=== PATIENT | male | born 1965 | race American Indian/Alaskan Native ===

== ENCOUNTER 2016-05-10 10:36 | Inpatient (IN) | payer MEDICAID ==
--- NOTE | 2016-05-10 12:26 | Emergency Department Report ---
Chief Complaint: Pain General Stated Complaint: RT ARM/KNEE PAIN Time Seen by Provider: 05/10/16 12:23 - HPI History of Present Illness: 51 y/o male complain of bilateral chest pain radiating to right knee and bilateral shoulder pain x 2 days .pt complain of shortness of breath with chronic cough .pt denies any prior medical treatment .denies any injury - ROS Review of Systems: per HPI - Exam Vital Signs: Vital Signs 05/10/16 12:00 Temperature 98.5 F Pulse Rate 98 H Respiratory 20 Rate Blood Pressure 147/110 O2 Sat by Pulse 98 Oximetry Physical Exam: GENERAL: The patient is well-developed and well-nourished. Patient is in NAD. HENT: Normocephalic. Atraumatic. Patient has moist mucous membranes. Throat: No erythema, swelling or exudates. EYES: Extraocular motions are intact, PERRL NECK: Supple. No meningitic signs are noted. There is no adenopathy noted. CHEST/LUNGS: Clear to auscultation bilaterally. No wheezing, rales or rhonchi noted. There is no respiratory distress noted. HEART/CARDIOVASCULAR: Regular rate and rhythm. Normal S1 S2. No murmurs, rubs , clicks, or gallops. ABDOMEN: Abdomen is soft, nontender.. Bowel sounds normoactive. There is no abdominal distention. Negative rebound tenderness. : Deferred. SKIN: There is no rash. There is no edema. There is no diaphoresis. NEURO: The patient is A&Ox3. The patient has no focal neurologic deficits. MUSCULOSKELETAL: There is no tenderness or deformity. There is no limitation range of motion. PSYCH: Pt has appropriate mood and affect. MSE screening note: Focused history and physical exam performed. Due to findings the following was ordered: ED Disposition for MSE Condition: Stable
--- NOTE | 2016-05-10 12:41 | XRay Report ---
ROUTINE CHEST, TWO VIEWS: HISTORY: Cough. No comparison. Previous CABG changes are suspected. The trachea, heart, mediastinal contour, lung baig and bony thorax are unremarkable. IMPRESSION: No acute cardiopulmonary process.
[2016-05-10 13:13] LABS: Basophils % (Auto) 0.9 % (0.0-1.8); Eosinophils % (Auto) 2.2 % (0.0-4.3); Hematocrit 46.3 % (35.5-45.6); Hemoglobin 14.7 gm/dl (11.8-15.2); Mean Corpuscular HGB Conc 32 % (32-34); Mean Corpuscular Volume 80 fl (84-94); Platelet Count 208 K/mm3 (140-440); Red Blood Count 5.76 M/mm3 (3.65-5.03); Red Cell Distribution Width 16.2 % (13.2-15.2); White Blood Count 5.7 K/mm3 (4.5-11.0)
[2016-05-10 13:15] LABS: Mean Corpuscular Hemoglobin 26 pg (28-32)
[2016-05-10 13:21] LABS: Creatine Kinase MB 2.2 ng/mL (0.0-4.0)
[2016-05-10 13:23] LABS: Anion Gap 18 mmol/L; Blood Urea Nitrogen 10 mg/dL (9-20); Calcium 9.3 mg/dL (8.4-10.2); Carbon Dioxide 23 mmol/L (22-30); Creatine Kinase 104 units/L (55-170); Glucose 95 mg/dL (75-100); Potassium 4.1 mmol/L (3.6-5.0); Sodium 134 mmol/L (137-145)
--- NOTE | 2016-05-10 23:27 | Admit Criteria Form ---
Admission Criteria Documentation: CHEST PAIN: OBSERVATION CARE USE THIS FORM ONLY WHEN INPATIENT ADMISSION CRITERIA ARE NOT MET. (Place X for any and all applicable criteria): Placement for observation care may be appropriate for a patient with chest pain and ANY ONE of the following (1)(2)(3)(4)(5): []I. Suspected cardiac ischemia with nondiagnostic initial evaluation (eg, ECG, cardiac biomarkers) requiring further immediate evaluation such as stress testing and repeat laboratory testing to clarify diagnosis []II. Other suspected diagnosis requiring observation and monitoring during diagnostic evaluation (eg, pulmonary embolus, aortic dissection, pneumothorax, pericarditis, GI bleeding) (6)(7)(8)(9) [X]III. Other observation care needs (Use General Criteria: Observation Care) The original [facility] content created by [facility] has been revised. The portions of the content which have been revised are identified through the use of italic text, and [facility] has neither reviewed nor approved the modified material. All other unmodified content is copyright [facility] [employer]. Please see references footnoted in the original [email or web address] edition 2015 Admission Criteria Met: Pending
--- NOTE | 2016-05-10 23:29 | Emergency Department Report ---
ED Chest Pain HPI - General Chief Complaint: Pain General Stated Complaint: RT ARM/KNEE PAIN Time Seen by Provider: 05/10/16 23:15 Source: patient Mode of arrival: Ambulatory Limitations: No Limitations - History of Present Illness Initial Comments: Patient is a 51-year-old male with history of hypertension, hyperlipidemia, coronary artery disease status post CABG presenting today because of chest pain and left shoulder pain. Patient states that the pain has been going on for 2 days and is associated with shortness of breath and nausea and vomiting. He also is complaining of right lower extremity pain where he had a prior surgery. Patient is an active smoker of tobacco. Nothing seems to make symptoms better or worse. Severity scale (0 -10): 8 - Related Data Home Medications Medication Instructions Recorded Confirmed Last Taken Unobtainable 05/11/16 05/11/16 Unknown Allergies Allergy/AdvReac Type Severity Reaction Status Date / Time No Known Allergies Allergy Unverified 05/10/16 12:11 MIAN score - Mian Score Age > 65: (0) No Aspirin use within the Past 7 Days: (1) Yes 3 or more CAD Risk Factors: (1) Yes 2 or more Angina events in past 24 hrs: (1) Yes Known CAD with more than 50% Stenosis: (0) No Elevated Cardiac Markers: (0) No ST Deviation Greater than 0.5mm: (0) No MIAN Score: 3 ED Review of Systems ROS: Stated complaint: RT ARM/KNEE PAIN Other details as noted in HPI Comment: All other systems reviewed and negative Constitutional: denies: chills, fever Respiratory: cough (cough for 1 month), SOB with exertion Cardiovascular: chest pain, dyspnea on exertion Gastrointestinal: nausea, vomiting. denies: abdominal pain Musculoskeletal: as per HPI Skin: denies: rash Neurological: denies: headache ED Past Medical Hx - Medications Home Medications: Home Medications Medication Instructions Recorded Confirmed Last Taken Type Unobtainable 05/11/16 05/11/16 Unknown History ED Physical Exam - General Limitations: No Limitations General appearance: alert, in no apparent distress - Head Head exam: Present: atraumatic - Eye Eye exam: Present: normal appearance - ENT ENT exam: Present: normal exam - Respiratory Respiratory exam: Present: normal lung sounds bilaterally. Absent: respiratory distress, wheezes - Cardiovascular Cardiovascular Exam: Present: regular rate, normal heart sounds, other (midline surgical scar in place.) - GI/Abdominal GI/Abdominal exam: Present: soft. Absent: distended, tenderness - Extremities Exam Extremities exam: Present: other (linear scar on the medial aspect of the right lower leg below knee, nontender) - Neurological Exam Neurological exam: Present: alert. Absent: motor sensory deficit - Skin Skin exam: Absent: rash ED Course Vital Signs 05/10/16 05/10/16 05/11/16 12:00 16:23 00:21 Temperature 98.5 F 98.1 F Pulse Rate 98 H 91 H Respiratory 20 20 20 Rate Blood Pressure 147/110 145/102 O2 Sat by Pulse 98 96 Oximetry ED Medical Decision Making - Lab Data Result diagrams: 05/10/16 12:47 05/10/16 12:47 - Medical Decision Making Patient has significant risk factors for ACS is also a story concerning for it. Labs and chest x-ray pre-ordered. Labs show a negative troponin and x-ray read as negative by radiology. EKG shows normal sinus rhythm at a rate of 87 with a narrow QRS, no ST elevation or depression, Has diffuse T-wave inversions in the precordial leads He should take 81 mg earlier of aspirin in the day. We'll give another 81 mg of aspirin here. We'll also repeat troponin. Will admit due patient's risk factors and concerning story for ACS Critical care attestation.: If time is entered above; I have spent that time in minutes in the direct care of this critically ill patient, excluding procedure time. ED Disposition Clinical Impression: Chest pain Qualifiers: Chest pain type: unspecified Qualified Code(s): R07.9 - Chest pain, unspecified Disposition: OP ADMITTED IP TO THIS HOSP Is pt being admited?: Yes Does the pt Need Aspirin: Yes Condition: Serious Instructions: Chest Pain (ED) Time of Disposition: 00:54 (Spoke to Dr. Mariscal about admission)
--- NOTE | 2016-05-10 23:30 | Admit Criteria Form ---
Admission Criteria Documentation: CARDIOLOGY GRG Clinical Indications for Admission to Inpatient Care ( Place 'X' for any and all applicable criteria): Hospital admission is needed for appropriate care of the patient because of ANY ONE of the following (1): [ ] I. Hemodynamic instability as indicated by ALL of the following (1)(2)(3) (4)(5) [ ]a) Vital signs or other findings not as expected for chronic patient condition or baseline [ ]b) Instability indicated by ANY ONE of the following: [ ]i) Hypotension [ ]ii) Symptomatic Tachycardia unresponsive to treatment ( e.g., analgesia, fluids, sedation as indicated) [ ]iii) Inadequate perfusion indicated by ANY ONE of the following: [ ] 1) Lactic acidosis (> 2 mmol/L) [ ] 2) New abnormal capillary refill (> 3 seconds) [ ] 3) Reduced urine output [ ] 4) New altered mental status [ ]iv) Orthostatic vital sign changes unresponsive to treatment (e.g., fluids) [ ]v) IV inotropic or vasopressor medication required to maintain adequate blood pressure or perfusion [ ] II. Severe heart failure as indicated by ANY ONE of the following(17)(18) [ ]a) Respiratory distress [ ]b) Hypotension [ ]c) Anasarca (refractory to outpatient therapy) [ ]d) Cardiac arrhythmias of immediate concern [ ]e) Myocardial ischemia [ ] III. Cardiac arrhythmias or findings of immediate concern indicated by ANY ONE of the following (19)(20): [ ] a) Heart rhythms that are inherently dangerous or unstable indicated by ANY ONE of the following (21)(22)(23): [ ] i) Resuscitated ventricular fibrillation or cardiac arrest [ ] ii) Ventricular escape rhythm [ ] iii) Sustained ventricular tachycardia (30 seconds or more of ventricular rhythm at greater than 100 beats per minute) [ ] iv) Nonsustained ventricular tachycardia and ANY ONE of the following: [ ] 1) Suspected cardiac ischemia as cause or consequence of ventricular tachycardia [ ] 2) In setting of acute myocarditis [ ] b) Unstable cardiac conduction defects indicated by ANY ONE of the following(23)(24)(25) [ ] i) Type II second-degree atrioventricular block [ ]ii) Third-degree atrioventricular block [ ]iii) New-onset left bundle branch block with suspected myocardial ischemia [ ]c) Any heart rhythm and ANY ONE of the following (21)(22)(26)(27) (28) [ ] i) Continuous long-term ECG monitoring needed (e.g., initiation of drug requiring monitoring for more than 24 hours) [ ] ii) Patient has automatic implanted cardioverter defibrillator that is repeatedly firing, malfunctioning, or in need of immediate adjustment of settings beyond the scope of ambulatory or observation care [ ]d) Heart rhythms of concern due to ANY ONE of the following: [ ] i) Hypotension [ ] ii) Respiratory distress [ ] iii) Association with other significant symptoms (e.g., bradycardia with syncope or ongoing dizziness, supraventricular tachycardia with chest pain (14)(15)(17) [ ] IV. Monitoring for cardiac contusion beyond the scope of observation care needed [A](30)(31)(32) [ ] V. Surgical or device complication (e.g., valve replacement complication , pacemaker dysfunction) (35)(41)(44)(45)(46) [ ] . Inpatient palliative care needed. [B](49) Also use Inpatient Palliative Care Criteria [ ] VII. Nonbacterial thrombotic (marantic) endocarditis (36)(43)(47)(48) [ X] VIII. Cardiology condition, symptom, or finding for which emergency and observation care has failed or are not considered appropriate. [ ] IX. Acute valvular disease requiring inpatient as indicated by ANY ONE of the following (41) [ ]a) Acute valvular regurgitation (42) [ ]b) Noninfectious valvulitis (43) [ ]c) Obstructive valve thrombosis [ ]d) Paravalvular leak [ ]e) Other significant valvular disorder remaining after emergency or observation level of care (as appropriate) [ ]X. Pericardial disease requiring inpatient treatment as indicated by ANY ONE of the following (33)(34)(35)(36)(37) [ ]a) Suspected tamponade (38)(39)(40) [ ]b) Hemopericardium [ ]c) Other significant pericardial disorder remaining after emergency or observation level of care (as appropriate) [ ] XI. Cardiac ischemia beyond scope of emergency and observation care. [ ] XII. Hypertension requiring inpatient treatment as indicated by ANY ONE of the following (6)(7)(8) [ ]a) SBP greater than 220 mm Hg or DBP greater than 120 mmHg despite treatment [ ]b) SBP greater than 140 mm Hg or DBP greater than 100 mm Hg with evidence of acute end organ damage as indicated by ANY ONE of the following [ ] i) Altered mental status [ ] ii) Acute renal failure as indicated by new onset of ANY ONE of the following (9)(10)(11)(12)(13) [ ]1) 3-fold rise in serum creatinine from baseline [ ]2) Serum creatinine greater than 4 mg/dL ( 354 micromoles/L) with acute rise greater than 0.5 mg/dL (44.2 micromoles/L) [ ]3) Reduction of more than 75% in estimated glomerular filtration rate from baseline [ ]4) Estimated glomerular filtration rate less than 35 mL/min/1.73m2 (0.59 mL/sec/1.73m2) in child up to 18 years of age [ ]5) Cessation of urine output indicated by ALL of the following [ ]A. Adequate volume status [ ]B. Inadequate urine output as indicated by ANY ONE of the following [ ]a. Urine output less than 0.3 mL/kg/hr for 24 hours [ ]b. Anuria (urine output less than 0.1 mL/kg/hr) for 12 hours [ ] iii) Aortic dissection [ ] iv) Myocardial Ischemia [ ] v) Left ventricular heart failure [ ]vi) Retinal Hemorrhage [ ]vii) Other significant finding [ ]c) Hypertension in child requiring inpatient treatment as indicated by ALL of the following(14)(15)(16) [ ] i) Outpatient treatment not effective, not available, or not appropriate [ ]ii) SBP or DBP greater than 95th percentile for age [ ]iii) Evidence of acute end organ damage as indicated by ANY ONE of the following [ ]1) Altered mental status [ ]2) Acute renal failure as indicated by new onset of ANY ONE of the following(9)(10)(11)(12)(13) [ ]A. 3-fold rise in serum creatinine from baseline [ ]B. Serum creatinine greater than 4 mg/dL (354 micromoles/L) with acute rise greater than 0.5 mg/dL (44.2 micromoles/L) [ ]C. Reduction of more than 75% in estimated glomerular filtration rate from baseline [ ]D. Estimated glomerular filtration rate less than 35 mL/min/1.73m2 (0.59 mL/sec/1.73m2) in child up to 18 years of age [ ]E. Cessation of urine output indicated by ALL of the following [ ]a. Adequate volume status [ ]b. Inadequate urine output as indicated by ANY ONE of the following [ ]i) Urine output less than 0.3 mL/kg/hr for 24 hours [ ]ii) Anuria ( urine output less than 0.1 mL/kg/hr) for 12 hours [ ]3) Severe headache [ ]4) Visual disturbance [ ]5) Retinal hemorrhage [ ]6) Other significant finding [ ]XIII. Complications of transplanted heart indicated by ANY ONE of the following(61): [ ]a) Acute graft rejection requiring inpatient management (eg, intravenous immunosuppression)(62)(63) [ ]b) Acute graft heart failure indicated by ANY ONE of the following(64): [ ]i) Hemodynamic instability [ ]ii) Cardiac arrhythmias of immediate concern [ ]iii) Pulmonary edema that is very severe (eg, mechanical ventilation needed, imminent or likely, need for 100% oxygen to keep oxygen saturation above 90%) [ ]iv) Pulmonary edema that is persistent as indicated by ALL of the following: [ ]1) New need for oxygen therapy to keep oxygen saturation above 90% (or increased FiO2 need from baseline) [ ]2) Has not improved sufficiently with emergency department or observation care IV diuretics or other heart failure treatments[E] [ ]v) Altered mental status that is severe or persistent [ ]vi) Increased creatinine (new on laboratory test) with reduction of more than 50% in estimated glomerular filtration rate from baseline [ ]vii) Progressively (ongoing) rising creatinine (known from past laboratory test) with reduction of more than 25% in estimated glomerular filtration rate from baseline [ ]viii) Acute renal failure [ ]ix) Acute peripheral ischemia (eg, examination shows pulseless, cool, mottled, or cyanotic extremity) [ ]x) Pulmonary artery catheter monitoring needed [ ]xi) Other sign or symptom of heart failure requiring inpatient treatment (ie, too severe or not responsive to outpatient and observation care treatment) [ ]c) Infection requiring inpatient management (eg, Hemodynamic instability, need for intravenous antimicrobial treatment)(66)(67)(68)(69)(70) [ ]d) Cardiac allograft vasculopathy requiring inpatient management ( eg evidence of cardiac ischemia)(71) [ ]e) Other complication of transplanted heart (eg, stroke, severe pulmonary hypertension, severe valvular dysfunction) requiring inpatient management(72) The original [facility] [employer] content created by [facility] has been revised. The portions of the content which have been revised are identified through the use of italic text or in bold, and [facility] has neither reviewed nor approved the modified material. All other unmodified content is copyright [facility] [employer]. Please see references footnoted in the original [facility] [employer] edition 2016 Admission Criteria Met: Pending
[2016-05-10] MEDS ORDERED: BABY ASPIRIN PO ONE (23:33)
[2016-05-11] MEDS ORDERED: PERCOCET 5/325 PO ONE (00:53)
--- NOTE | 2016-05-11 04:31 | History and Physical Report ---
History of Present Illness Date of examination: 05/11/16 Chief complaint: chest pain History of present illness: Patient is a 51-year-old male with history of hypertension, hyperlipidemia, coronary artery disease status post CABG presenting today because of chest pain and left shoulder pain. Patient stated that the pain has been going on for 2 days and is associated with shortness of breath, diaphoresis, nausea and vomiting. He also is complaining of right lower extremity pain where he had a prior surgery. Patient is an active smoker of tobacco. Nothing seems to make symptoms better or worse. patient complains chest bilateral, pressure-like, 8 out of 10 in intensity. Patient also complains of cough productive of whitish sputum for the last 1 week, but denied fever or chills. Also complains left arm numbness. REVIEW OF SYSTEMS: GENERAL: no weight change, no fatigue, no fever HEAD: no head ache EYES: no blurry vision, no acute visual loss EARS: no hearing loss, no discharge, no earache NOSE: no stuffiness, no sneezing, no discharge MOUTH, THROAT AND NECK: no bleeding gums, no sore throat, no swollen neck CARDIAC: no palpitations, no dyspnea on exertion, no orthopnea, no PND, no edema RESPIRATORY: no wheeze, no cough, no sputum, no hemoptysis, no asthma GI: no decreased appetite, no nausea, no vomiting, no dysphagia, no diarrhea, no constipation, no abdominal pain URINARY: no change in frequency, no urgency, no polyuria, no hematuria, no incontinence MUSCULOSKELETAL: no muscle weakness, no pain, no joint stiffness NEUROLOGIC: no loss of sensation/numbness, no tingling, no tremors, no weakness/ paralysis HEMATOLOGIC: no anemia, no easy bruising SKIN: no rashes ENDOCRINE: no heat/cold intolerance, no polyuria, no polydipsia, no thyroid problems, no diabetes PSYCHIATRIC: no anxiety, no depression, no suicidal ideations Past History Past Medical History: CAD, hypertension, hyperlipidemia Past Surgical History: Other (leg surgery) Social history: smoking (1 pack over 3 days), full code. denies: alcohol abuse , prescription drug abuse, IV drug use Family history: CAD (multiple family members) Medications and Allergies Allergies Allergy/AdvReac Type Severity Reaction Status Date / Time No Known Allergies Allergy Unverified 05/10/16 12:11 Home Medications Medication Instructions Recorded Confirmed Last Taken Type Unobtainable 05/11/16 05/11/16 Unknown History Active Meds: Active Medications Aspirin (Aspirin) 325 mg PO QDAY MICHELLE Heparin Sodium (Porcine) (Heparin) 5,000 unit SUB-Q Q8HR [facility] Exam - Physical Exam Narrative exam: Not in cardiopulmonary distress. The patient appeared well nourished and normally developed. Vital signs as documented. Head exam is unremarkable. No scleral icterus . Neck is without jugular venous distension, thyromegaly, or carotid bruits. Lungs are clear to auscultation. Cardiac exam reveals regular rate and Rhythm. First and second heart sounds normal. No murmurs, rubs or gallops. Abdominal exam reveals normal bowel sounds, no masses, no organomegaly and no aortic enlargement. Extremities are nonedematous and both femoral and pedal pulses are normal. [employer]: Alert and oriented 3. No focal weakness. - Constitutional Vitals: Temp Pulse Resp BP Pulse Ox 98.1 F 91 H 18 145/102 96 05/10/16 16:23 05/10/16 16:23 05/11/16 01:44 05/10/16 16:23 05/10/16 16:23 Results - Labs CBC & Chem 7: 05/10/16 12:47 05/10/16 12:47 Labs: Laboratory Last Values WBC 5.7 K/mm3 (4.5-11.0) 05/10/16 12:47 RBC 5.76 M/mm3 (3.65-5.03) H 05/10/16 12:47 Hgb 14.7 gm/dl (11.8-15.2) 05/10/16 12:47 Hct 46.3 % (35.5-45.6) H 05/10/16 12:47 MCV 80 fl (84-94) L 05/10/16 12:47 MCH 26 pg (28-32) L 05/10/16 12:47 MCHC 32 % (32-34) 05/10/16 12:47 RDW 16.2 % (13.2-15.2) H 05/10/16 12:47 Plt Count 208 K/mm3 (140-440) 05/10/16 12:47 Lymph % (Auto) 32.7 % (13.4-35.0) 05/10/16 12:47 Bradley % (Auto) Hockey Instructor 05/10/16 12:47 Eos % (Auto) 2.2 % (0.0-4.3) 05/10/16 12:47 Baso % (Auto) 0.9 % (0.0-1.8) 05/10/16 12:47 Lymph # 1.9 K/mm3 (1.2-5.4) 05/10/16 12:47 Bradley # 0.9 K/mm3 (0.0-0.8) H 05/10/16 12:47 Eos # 0.1 K/mm3 (0.0-0.4) 05/10/16 12:47 Baso # 0.1 K/mm3 (0.0-0.1) 05/10/16 12:47 Seg Neutrophils % 49.2 % (40.0-70.0) 05/10/16 12:47 Seg Neutrophils # 2.8 K/mm3 (1.8-7.7) 05/10/16 12:47 Sodium 134 mmol/L (137-145) L 05/10/16 12:47 Potassium 4.1 mmol/L (3.6-5.0) 05/10/16 12:47 Chloride 97.0 mmol/L (98-107) L 05/10/16 12:47 Carbon Dioxide 23 mmol/L (22-30) 05/10/16 12:47 Anion Gap 18 mmol/L 05/10/16 12:47 BUN 10 mg/dL (9-20) 05/10/16 12:47 Creatinine 1.0 mg/dL (0.8-1.5) 05/10/16 12:47 Estimated GFR > 60 ml/min 05/10/16 12:47 BUN/Creatinine Ratio 10.00 % 05/10/16 12:47 Glucose 95 mg/dL (75-100) 05/10/16 12:47 Calcium 9.3 mg/dL (8.4-10.2) 05/10/16 12:47 Total Creatine Kinase 104 units/L (55-170) 05/10/16 12:47 CK-MB (CK-2) 2.2 ng/mL (0.0-4.0) 05/10/16 12:47 CK-MB (CK-2) Rel Index 2.1 (0-4) 05/10/16 12:47 Troponin T < 0.010 ng/mL (0.00-0.029) 05/10/16 23:42 NT-Pro-B Natriuret Pep 301.9 pg/mL (0-900) 05/10/16 23:42 - Imaging and Cardiology EKG: image reviewed (T-wave inversions in leads V2 through V6) Assessment and Plan Assessment and plan: Chest pain to rule out ACS History of CAD status post CABG Hypertension Hyperlipidemia Bronchitis - Serial EKGs and cardiac enzymes - Cardiology consult - Stress test is up to cardiology - Counselling about smoking cessation - Aspirin - Cardiac rehabilitation consult Prophylaxis - heparin Disposition - Admit to telemetry unit Advance Directives: Yes VTE prophylaxis?: Chemical Plan of care discussed with patient/family: Yes
[2016-05-11] MEDS: HEPARIN SUB-Q SCH ×3 (07:14→22:30)
[2016-05-11 08:16] LABS: Creatine Kinase MB 1.4 ng/mL (0.0-4.0)
[2016-05-11 08:19] LABS: Creatine Kinase 69 units/L (55-170)
[2016-05-11 10:52] LABS: Creatine Kinase MB 1.4 ng/mL (0.0-4.0)
[2016-05-11 10:54] LABS: Creatine Kinase 64 units/L (55-170)
--- NOTE | 2016-05-11 12:41 | Consultation ---
History of Present Illness Consult date: 05/11/16 Consult reason: chest pain History of present illness: 51 year old -Uz[place] male presenting with substernal chest pain at rest described as 6/10 nonexertional and nonradiating and not associated with any diaphoresis nausea or vomiting. Past History Past Medical History: CAD, hypertension, hyperlipidemia Past Surgical History: CABG, Other (leg surgery) Social history: smoking (1 pack over 3 days), full code. denies: alcohol abuse , prescription drug abuse, IV drug use Family history: CAD (multiple family members) Medications and Allergies Allergies Allergy/AdvReac Type Severity Reaction Status Date / Time No Known Allergies Allergy Unverified 05/10/16 12:11 Home Medications Medication Instructions Recorded Confirmed Last Taken Type Unobtainable 05/11/16 05/11/16 Unknown History Active Meds: Active Medications Aspirin (Aspirin) 325 mg PO QDAY MICHELLE Heparin Sodium (Porcine) (Heparin) 5,000 unit SUB-Q Q8HR MICHELLE Last Admin: 05/11/16 07:14 Dose: 5,000 unit Review of Systems Cardiovascular: chest pain Physical Examination Vital Signs Temp Pulse Resp BP Pulse Ox 98.5 F 98 H 20 147/110 98 05/10/16 12:00 05/10/16 12:00 05/10/16 12:00 05/10/16 12:00 05/10/16 12:00 General appearance: no acute distress, well-nourished HEENT: Positive: PERRL, Mucus Membranes Moist Neck: Positive: neck supple, trachea midline Cardiac: Positive: Reg Rate and Rhythm, S1/S2. Negative: Audible Murmur Lungs: Positive: clear to auscultation, Normal Breath Sounds Neuro: Positive: Grossly Intact Abdomen: Positive: Soft, Active Bowel Sounds. Negative: Tender, Distended Male genitourinary: Positive: normal Skin: Positive: Clear Incision: Cardiac Cath Site Musculoskeletal: No Pain, Normal Range of Motion Extremities: Present: normal. Absent: edema Results 05/10/16 12:47 05/10/16 12:47 Cardiac Enzymes 05/11/16 05/11/16 Range/Units 07:26 10:05 CK-MB (CK-2) 1.4 1.4 (0.0-4.0) ng/mL EKG interpretations - Telemetry EKG Rhythm: Sinus Rhythm Assessment and Plan 1. Unstable angina rule out myocardial infarction 2. History of coronary artery disease status post CABG 3. Essential hypertension 4. Hyperlipidemia 5. Obesity Plan. Patient currently stable and chest pain-free initial cardiac isoenzymes pending recommend an echocardiogram to assess global and regional LV function Lexiscan thallium scan to rule out underlying ischemic coronary artery disease. Obtain records from [facility].
[2016-05-11] MEDS ORDERED: NITROSTAT SL PRN (13:18)
[2016-05-11] MEDS ORDERED: SODIUM CHLORIDE FLUSH SYRINGE 10 ML IV PRN (13:18)
[2016-05-11] MEDS: MORPHINE IV PRN ×4 (13:30→22:26)
[2016-05-11] MEDS ORDERED: MORPHINE ONE (13:49)
[2016-05-11 14:28] LABS: Creatine Kinase MB 1.4 ng/mL (0.0-4.0)
[2016-05-11 14:29] LABS: Creatine Kinase 73 units/L (55-170)
--- NOTE | 2016-05-11 15:28 | Progress Note ---
Assessment and Plan Assessment and plan: Chest pain to rule out ACS History of CAD status post CABG Hypertension Hyperlipidemia Chronic Bronchitis - Serial EKGs and cardiac enzymes did not show any sign of ACS - Cardiology recommended 2-D echo - We will order Stress test and will get medical records from [place] - Counselled about smoking cessation - Continue Aspirin, statin and beta fernando - Cardiac rehabilitation following discharge Prophylaxis - heparin Disposition -Monitor at telemetry -Discharge planning when clears by cardiology History Interval history: Patient seen and examined. Medical records and medication list reviewed. No acute event overnight noted by the RN. Patient continue to c/o intermittent chest pain. Patient is tolerating diet. Discussed plan of care at bedside with patient. Hospitalist Physical - Physical exam Narrative exam: GENERAL: well-developed and well-nourished elderly -Welsh male lying on bed appeared to be in no discomfort. HEENT: Normocephalic. Atraumatic. No conjunctival congestion or icterus. Patient has moist mucous membranes. NECK: Supple. Trachea midline. CHEST/LUNGS: Clear to auscultated bilaterally, breathing nonlabored. No wheezes crackles or rhonchi. HEART/CARDIOVASCULAR: Regular in rate and rhythm. S1 and S2 positive. ABDOMEN: Abdomen is soft, nontender. Patient has normal bowel sounds. SKIN: There is no rash. Warm and dry. NEURO: No focal motor deficit. Follows command. MUSCULOSKELETAL: No joint effusion or tenderness. EXTRIMITY: No edema, no cyanosis or clubbing. PSYCH: Cooperative. - Constitutional Vitals: Temp Pulse Resp BP Pulse Ox 98.1 F 72 18 125/86 97 05/10/16 16:23 05/11/16 10:55 05/11/16 13:50 05/11/16 15:01 05/11/16 15:01 General appearance: Present: no acute distress, well-nourished Results - Labs CBC & Chem 7: 05/10/16 12:47 05/10/16 12:47 Labs: Laboratory Last Values WBC 5.7 K/mm3 (4.5-11.0) 05/10/16 12:47 RBC 5.76 M/mm3 (3.65-5.03) H 05/10/16 12:47 Hgb 14.7 gm/dl (11.8-15.2) 05/10/16 12:47 Hct 46.3 % (35.5-45.6) H 05/10/16 12:47 MCV 80 fl (84-94) L 05/10/16 12:47 MCH 26 pg (28-32) L 05/10/16 12:47 MCHC 32 % (32-34) 05/10/16 12:47 RDW 16.2 % (13.2-15.2) H 05/10/16 12:47 Plt Count 208 K/mm3 (140-440) 05/10/16 12:47 Lymph % (Auto) 32.7 % (13.4-35.0) 05/10/16 12:47 [place] % (Auto) Predatory Animal Exterminator 05/10/16 12:47 Eos % (Auto) 2.2 % (0.0-4.3) 05/10/16 12:47 Baso % (Auto) 0.9 % (0.0-1.8) 05/10/16 12:47 Lymph # 1.9 K/mm3 (1.2-5.4) 05/10/16 12:47 [place] # 0.9 K/mm3 (0.0-0.8) H 05/10/16 12:47 Eos # 0.1 K/mm3 (0.0-0.4) 05/10/16 12:47 Baso # 0.1 K/mm3 (0.0-0.1) 05/10/16 12:47 Seg Neutrophils % 49.2 % (40.0-70.0) 05/10/16 12:47 Seg Neutrophils # 2.8 K/mm3 (1.8-7.7) 05/10/16 12:47 Sodium 134 mmol/L (137-145) L 05/10/16 12:47 Potassium 4.1 mmol/L (3.6-5.0) 05/10/16 12:47 Chloride 97.0 mmol/L (98-107) L 05/10/16 12:47 Carbon Dioxide 23 mmol/L (22-30) 05/10/16 12:47 Anion Gap 18 mmol/L 05/10/16 12:47 BUN 10 mg/dL (9-20) 05/10/16 12:47 Creatinine 1.0 mg/dL (0.8-1.5) 05/10/16 12:47 Estimated GFR > 60 ml/min 05/10/16 12:47 BUN/Creatinine Ratio 10.00 % 05/10/16 12:47 Glucose 95 mg/dL (75-100) 05/10/16 12:47 Calcium 9.3 mg/dL (8.4-10.2) 05/10/16 12:47 Total Creatine Kinase 73 units/L (55-170) 05/11/16 13:57 CK-MB (CK-2) 1.4 ng/mL (0.0-4.0) 05/11/16 13:57 CK-MB (CK-2) Rel Index 1.9 (0-4) 05/11/16 13:57 Troponin T < 0.010 ng/mL (0.00-0.029) 05/11/16 13:57 NT-Pro-B Natriuret Pep 301.9 pg/mL (0-900) 05/10/16 23:42
[2016-05-11 17:10] LABS: Creatine Kinase 62 units/L (55-170); Creatine Kinase MB 1.3 ng/mL (0.0-4.0)
[2016-05-11 19:51] LABS: Creatine Kinase MB 1.3 ng/mL (0.0-4.0)
[2016-05-11 19:52] LABS: Creatine Kinase 61 units/L (55-170)
[2016-05-11] MEDS: PEPCID PO SCH (22:21)
[2016-05-12] MEDS: MORPHINE IV PRN ×4 (05:42→22:25)
[2016-05-12] MEDS: HEPARIN SUB-Q SCH ×3 (05:43→22:18)
[2016-05-12] MEDS ORDERED: LEXISCAN IV ONE ×2 (07:59→08:09)
--- NOTE | 2016-05-12 10:19 | Progress Note ---
Assessment and Plan 1. Unstable angina rule out myocardial infarction 2. History of coronary artery disease. Status post CABG 3. Essential hypertension 4. Hyperlipidemia 5. Obesity Plan. Patient states he had stress MPI done at [place] within the past 3 weeks as a result Lexiscan MPI today is cancelled. Obtain records from [facility]. Subjective Date of service: 05/12/16 Principal diagnosis: Chest pains Interval history: No cardiac symptoms. Objective Vital Signs Temp Pulse Pulse Resp BP BP BP 05/12/16 05:31 98.6 F 80 20 133/83 05/12/16 00:56 75 05/12/16 00:54 98.5 F 97 H 20 143/92 05/11/16 22:00 75 20 05/11/16 21:40 98.4 F 89 20 140/88 05/11/16 20:30 98.3 F 91 H 20 134/86 135/91 05/11/16 20:11 135/91 05/11/16 20:00 135/91 05/11/16 19:30 134/92 05/11/16 19:00 117/87 05/11/16 18:30 129/84 05/11/16 18:01 136/77 05/11/16 17:31 136/77 05/11/16 17:01 136/77 05/11/16 16:55 18 05/11/16 16:31 136/77 05/11/16 16:01 125/86 05/11/16 15:31 125/86 05/11/16 15:17 125/86 05/11/16 15:01 125/86 05/11/16 14:50 140/82 05/11/16 14:31 125/86 05/11/16 14:01 125/86 05/11/16 13:50 18 05/11/16 13:31 16 125/86 05/11/16 13:30 18 05/11/16 13:09 20 125/86 05/11/16 13:00 15 125/86 05/11/16 12:31 19 140/82 05/11/16 12:00 15 140/82 05/11/16 11:31 15 143/87 05/11/16 11:00 13 143/87 05/11/16 10:55 72 17 138/89 05/11/16 10:37 63 18 138/89 05/11/16 10:31 77 18 138/89 Pulse Ox 05/12/16 05:31 98 05/12/16 00:56 05/12/16 00:54 98 05/11/16 22:00 05/11/16 21:40 95 05/11/16 20:30 99 05/11/16 20:11 98 05/11/16 20:00 96 05/11/16 19:30 99 05/11/16 19:00 98 05/11/16 18:30 95 05/11/16 18:01 99 05/11/16 17:31 98 05/11/16 17:01 99 05/11/16 16:55 05/11/16 16:31 97 05/11/16 16:01 95 05/11/16 15:31 95 05/11/16 15:17 95 05/11/16 15:01 97 05/11/16 14:50 97 05/11/16 14:31 95 05/11/16 14:01 96 05/11/16 13:50 05/11/16 13:31 94 05/11/16 13:30 05/11/16 13:09 92 05/11/16 13:00 96 05/11/16 12:31 97 05/11/16 12:00 95 05/11/16 11:31 98 05/11/16 11:00 97 05/11/16 10:55 98 05/11/16 10:37 99 05/11/16 10:31 96 - Physical Examination General: Appears Well, No Apparent Distress HEENT: Positive: PERRL, Mucus Membranes Moist Neck: Positive: neck supple, trachea midline Cardiac: Positive: Regular Rate, S3, S4, PMI, Laterally Displaced Lungs: Positive: clear to auscultation, No Wheeze, Rales, Rhonchi Neuro: Positive: Grossly Intact Abdomen: Positive: Unremarkable, Soft, Active Bowel Sounds. Negative: Tender, Distended Skin: Positive: Clear Incision: Cardiac Cath Site Musculoskeletal: No Pain, Normal Range of Motion Extremities: Present: normal. Absent: edema - Labs and Meds Cardiac Enzymes 05/11/16 05/11/16 05/11/16 Range/Units 10:05 13:57 16:32 CK-MB (CK-2) 1.4 1.4 1.3 (0.0-4.0) ng/mL 05/11/16 Range/Units 19:12 CK-MB (CK-2) 1.3 (0.0-4.0) ng/mL - Imaging and Cardiology EKG: image reviewed (T-wave inversions in leads V2 through V6) - Telemetry EKG Rhythm: Sinus Rhythm
[2016-05-12] MEDS: PEPCID PO SCH ×2 (12:03→22:18)
[2016-05-12] MEDS: ASPIRIN PO SCH (12:03)
--- NOTE | 2016-05-12 16:41 | Progress Note ---
Assessment and Plan Assessment and plan: Chest pain to rule out ACS History of CAD status post CABG Hypertension Hyperlipidemia Chronic Bronchitis - Serial EKGs and cardiac enzymes did not show any sign of ACS - Cardiology recommended 2-D echo, results pending - get medical records from [place] [facility] about stress test - Counselled about smoking cessation - Continue Aspirin, statin and beta fernando - Cardiac rehabilitation following discharge Prophylaxis - heparin Disposition -Monitor at telemetry -Discharge planning when clears by cardiology History Interval history: Patient seen and examined. Medical records and medication list reviewed. No acute event overnight noted by the RN. Patient continue to c/o intermittent chest pain. Patient is tolerating diet. He had a stress test 3 weeks ago at [place], stress test was canceled this morning Discussed plan of care at bedside with patient. Hospitalist Physical - Physical exam Narrative exam: GENERAL: well-developed and well-nourished elderly -Icelandic male lying on bed appeared to be in no discomfort. HEENT: Normocephalic. Atraumatic. No conjunctival congestion or icterus. Patient has moist mucous membranes. NECK: Supple. Trachea midline. CHEST/LUNGS: Clear to auscultated bilaterally, breathing nonlabored. No wheezes crackles or rhonchi. HEART/CARDIOVASCULAR: Regular in rate and rhythm. S1 and S2 positive. ABDOMEN: Abdomen is soft, nontender. Patient has normal bowel sounds. SKIN: There is no rash. Warm and dry. NEURO: No focal motor deficit. Follows command. MUSCULOSKELETAL: No joint effusion or tenderness. EXTRIMITY: No edema, no cyanosis or clubbing. PSYCH: Cooperative. - Constitutional Vitals: Temp Pulse Resp BP Pulse Ox 97.7 F 96 H 18 130/91 97 05/12/16 12:00 05/12/16 12:00 05/12/16 12:00 05/12/16 12:00 05/12/16 12:00 General appearance: Present: no acute distress, well-nourished Results - Labs CBC & Chem 7: 05/10/16 12:47 05/10/16 12:47 Labs: Laboratory Last Values WBC 5.7 K/mm3 (4.5-11.0) 05/10/16 12:47 RBC 5.76 M/mm3 (3.65-5.03) H 05/10/16 12:47 Hgb 14.7 gm/dl (11.8-15.2) 05/10/16 12:47 Hct 46.3 % (35.5-45.6) H 05/10/16 12:47 MCV 80 fl (84-94) L 05/10/16 12:47 MCH 26 pg (28-32) L 05/10/16 12:47 MCHC 32 % (32-34) 05/10/16 12:47 RDW 16.2 % (13.2-15.2) H 05/10/16 12:47 Plt Count 208 K/mm3 (140-440) 05/10/16 12:47 Lymph % (Auto) 32.7 % (13.4-35.0) 05/10/16 12:47 [place] % (Auto) Yarn Dyer 05/10/16 12:47 Eos % (Auto) 2.2 % (0.0-4.3) 05/10/16 12:47 Baso % (Auto) 0.9 % (0.0-1.8) 05/10/16 12:47 Lymph # 1.9 K/mm3 (1.2-5.4) 05/10/16 12:47 [place] # 0.9 K/mm3 (0.0-0.8) H 05/10/16 12:47 Eos # 0.1 K/mm3 (0.0-0.4) 05/10/16 12:47 Baso # 0.1 K/mm3 (0.0-0.1) 05/10/16 12:47 Seg Neutrophils % 49.2 % (40.0-70.0) 05/10/16 12:47 Seg Neutrophils # 2.8 K/mm3 (1.8-7.7) 05/10/16 12:47 Sodium 134 mmol/L (137-145) L 05/10/16 12:47 Potassium 4.1 mmol/L (3.6-5.0) 05/10/16 12:47 Chloride 97.0 mmol/L (98-107) L 05/10/16 12:47 Carbon Dioxide 23 mmol/L (22-30) 05/10/16 12:47 Anion Gap 18 mmol/L 05/10/16 12:47 BUN 10 mg/dL (9-20) 05/10/16 12:47 Creatinine 1.0 mg/dL (0.8-1.5) 05/10/16 12:47 Estimated GFR > 60 ml/min 05/10/16 12:47 BUN/Creatinine Ratio 10.00 % 05/10/16 12:47 Glucose 95 mg/dL (75-100) 05/10/16 12:47 Calcium 9.3 mg/dL (8.4-10.2) 05/10/16 12:47 Total Creatine Kinase 61 units/L (55-170) 05/11/16 19:12 CK-MB (CK-2) 1.3 ng/mL (0.0-4.0) 05/11/16 19:12 CK-MB (CK-2) Rel Index 2.1 (0-4) 05/11/16 19:12 Troponin T < 0.010 ng/mL (0.00-0.029) 05/11/16 19:12 NT-Pro-B Natriuret Pep 301.9 pg/mL (0-900) 05/10/16 23:42
[2016-05-13] MEDS: MORPHINE IV PRN ×3 (06:17→23:47)
[2016-05-13] MEDS: HEPARIN SUB-Q SCH ×3 (06:17→22:30)
[2016-05-13] MEDS: ASPIRIN PO SCH (10:00)
[2016-05-13] MEDS: PEPCID PO SCH ×2 (10:00→22:30)
--- NOTE | 2016-05-13 15:58 | Progress Note ---
Addendum entered and electronically signed by BONNIE NUÑEZ MD 05/13/16 19:55 : This 51-year-old patient has a history of coronary disease, underwent 4 way coronary artery bypass just 4 years ago. Resents to the hospital at this time with atypical chest pain. His chest pain was nonexertional, located left lower rib cage, and at the same time pain and bilateral shoulder pain. The ECG is normal sinus rhythm with nonspecific anterior T-wave abnormalities. Cardiac enzymes including troponin are normal. In addition, he reports that he recently underwent stress testing at the [facility], which was negative. Recommendations: Obtain copies of his an ECG from [place] and his recent thallium stress test. If the ECG is unchanged and recent thallium stress test was negative, no further cardiac workup will be indicated. Original Note: Assessment and Plan Chest pain, atypical Hx of CAD s/p CABG 4 yrs ago Essential hypertension Obesity Tobacco abuse Recommendations: Awaiting recent cardiac workup from [facility]. If normal stress thallium patient can discharge home with outpatient cardiac follow up in 1wk. Medical therapy for his coronary artery disease. Advised smoking cessation. Subjective Date of service: 05/13/16 Principal diagnosis: Chest pains Interval history: Patient denies chest pain and shortness of breath. Objective Vital Signs Temp Pulse Pulse Resp BP Pulse Ox 05/13/16 11:51 98.1 F 68 20 148/84 97 05/13/16 09:00 96 H 05/13/16 08:10 98.3 F 78 20 127/76 97 05/13/16 06:00 98.4 F 70 21 152/97 96 05/13/16 01:35 96 H 05/13/16 00:00 98.4 F 78 21 153/94 97 05/12/16 21:00 97.5 F L 82 18 154/100 98 05/12/16 20:23 20 05/12/16 18:00 97.7 F 89 18 138/95 98 05/12/16 16:00 79 - Physical Examination General: No Apparent Distress HEENT: Positive: PERRL Neck: Positive: trachea midline Cardiac: Positive: Reg Rate and Rhythm Lungs: Positive: Decreased Breath Sounds Neuro: Positive: Grossly Intact Extremities: Present: normal. Absent: edema - Imaging and Cardiology EKG: image reviewed (T-wave inversions in leads V2 through V6)
--- NOTE | 2016-05-13 18:09 | Echocardiography Report ---
Transthoracic Echocardiogram Indication: Chest pain BP: 133/83 Findings Procedure Info: The study quality is poor. Left Ventricle: The left ventricle is not well visualized. The left ventricular chamber size is normal. Mild concentric left ventricular hypertrophy is observed. Global left ventricular wall motion and contractility are within normal limits. Global left ventricular systolic function is normal. The estimated ejection fraction is 50-55%. The left ventricular diastolic filling pattern is consistent with pseudonormalization. Left Atrium: The left atrium is not well visualized. The left atrium is moderately dilated. Right Ventricle: The right ventricle is not well visualized. The right ventricle is slightly dilated. Right Atrium: The right atrium is not well visualized. The right atrium is mildly dilated. The interatrial septum appears normal. Aortic Valve: The aortic valve is not well visualized. The aortic valve leaflets are moderately thickened. Mild aortic leaflet calcification is visualized. There is no evidence of aortic regurgitation. There is no evidence of aortic stenosis. Mitral Valve: The mitral valve leaflets appear myxomatous. The mitral valve leaflets are mildly thickened. Mild mitral leaflet calcification is visualized. There is trace of mitral regurgitation. There is no evidence of mitral stenosis. Tricuspid Valve: The tricuspid valve is not well visualized. There is mild tricuspid regurgitation. No pulmonary hypertension is noted. There is no tricuspid stenosis. Pulmonic Valve: The pulmonic valve is not well visualized. Pericardium: There is no pericardial effusion. Aorta: There is no dilatation of the ascending aorta. There is no dilatation of the aortic arch. There is no dilatation of the descending thoracic aorta. There is no dilatation of the aortic root. Venous: The inferior vena cava appears normal in size. Contrast: Definity was used to optimize study. Measurements Chambers MM Name Value Normal Range Ao root diameter (MM) 3 cm (2 - 3.7) LA dimension (AP) MM 5 cm (1.9 - 4) LA:Ao ratio (MM) 1.67 ratio - AV cusp separation (MM) 1.4 cm (1.5 - 2.6) Chambers 2D Name Value Normal Range IVSd (2D) 1.06 cm (0.6 - 1.1) LVPWd (2D) 1.06 cm (0.6 - 1.1) IVS:LVPW ratio (2D) 1 ratio - LVIDd (2D) 4.94 cm (3.7 - 5.6) LVIDs (2D) 3.2 cm (2 - 3.8) LV FS (Teichholz) (2D) 35.2 % - LV FS (cube) (2D) 35.2 % - EF Teichholz (2D) 64.3 % - LA dimension (AP) 2D 5.1 cm (1.9 - 4) Volumes/Mass Name Value Normal Range LA ESV SP 4CH (MOD) 35 ml - LA ESV SP 2CH (MOD) 40 ml - LA ESV BP (MOD) 39 ml - LA ESV BP (MOD) index 20.4 ml/m2 - Diastolic/Systolic Function Name Value Normal Range MV E-wave Vmax 0.84 m/sec - MV deceleration time 151 msec - MV A-wave Vmax 0.68 m/sec - MV E:A ratio 1.2 ratio - LV septal e' Vmax 0.07 m/sec - LV lateral e' Vmax 0.11 m/sec - LV E:e' septal ratio 11.9 ratio - LV E:e' lateral ratio 7.6 ratio - Aortic Valve Name Value Normal Range AV VTI 25.2 cm - AV mean gradient 3 mmHg - LVOT diameter 2 cm - LVOT VTI 19.1 cm - LVOT mean gradient 2 mmHg - SV LVOT 60 ml - [place] (continuity VTI) 2.38 cm2 - Mitral Valve Name Value Normal Range MV PHT 46 msec - MR Vmax 3.17 m/sec - MVA (PHT) 4.78 cm2 - Pulmonic Valve/Qp:Qs Name Value Normal Range PV Vmax 0.82 m/sec - PV peak gradient 3 mmHg -
--- NOTE | 2016-05-13 18:41 | Progress Note ---
Assessment and Plan Assessment and plan: Chest pain to rule out ACS History of CAD status post CABG Hypertension Hyperlipidemia Chronic Bronchitis - Serial EKGs and cardiac enzymes did not show any sign of ACS - 2-D echo showed normal ejection fraction - get medical records from [place] [facility] about stress test - Counselled about smoking cessation - Continue Aspirin, statin and beta fernando - Cardiac rehabilitation following discharge Prophylaxis - heparin Disposition -Monitor at telemetry -Discharge planning when clears by cardiology History Interval history: Patient seen and examined. Medical records and medication list reviewed. No acute event overnight noted by the RN. Patient continue to c/o intermittent chest pain. Patient is tolerating diet. He had a stress test 3 weeks ago at [place], stress test was canceled this morning Discussed plan of care at bedside with patient. Hospitalist Physical - Physical exam Narrative exam: GENERAL: well-developed and well-nourished elderly -Chilean male lying on bed appeared to be in no discomfort. HEENT: Normocephalic. Atraumatic. No conjunctival congestion or icterus. Patient has moist mucous membranes. NECK: Supple. Trachea midline. CHEST/LUNGS: Clear to auscultated bilaterally, breathing nonlabored. No wheezes crackles or rhonchi. HEART/CARDIOVASCULAR: Regular in rate and rhythm. S1 and S2 positive. ABDOMEN: Abdomen is soft, nontender. Patient has normal bowel sounds. SKIN: There is no rash. Warm and dry. NEURO: No focal motor deficit. Follows command. MUSCULOSKELETAL: No joint effusion or tenderness. EXTRIMITY: No edema, no cyanosis or clubbing. PSYCH: Cooperative. - Constitutional Vitals: Temp Pulse Resp BP Pulse Ox 98.1 F 96 H 20 151/100 98 05/13/16 16:40 05/13/16 17:00 05/13/16 16:40 05/13/16 16:40 05/13/16 16:40 General appearance: Present: no acute distress, well-nourished Results - Labs CBC & Chem 7: 05/10/16 12:47 05/10/16 12:47 Labs: Laboratory Last Values WBC 5.7 K/mm3 (4.5-11.0) 05/10/16 12:47 RBC 5.76 M/mm3 (3.65-5.03) H 05/10/16 12:47 Hgb 14.7 gm/dl (11.8-15.2) 05/10/16 12:47 Hct 46.3 % (35.5-45.6) H 05/10/16 12:47 MCV 80 fl (84-94) L 05/10/16 12:47 MCH 26 pg (28-32) L 05/10/16 12:47 MCHC 32 % (32-34) 05/10/16 12:47 RDW 16.2 % (13.2-15.2) H 05/10/16 12:47 Plt Count 208 K/mm3 (140-440) 05/10/16 12:47 Lymph % (Auto) 32.7 % (13.4-35.0) 05/10/16 12:47 [place] % (Auto) Housing Project Manager 05/10/16 12:47 Eos % (Auto) 2.2 % (0.0-4.3) 05/10/16 12:47 Baso % (Auto) 0.9 % (0.0-1.8) 05/10/16 12:47 Lymph # 1.9 K/mm3 (1.2-5.4) 05/10/16 12:47 [place] # 0.9 K/mm3 (0.0-0.8) H 05/10/16 12:47 Eos # 0.1 K/mm3 (0.0-0.4) 05/10/16 12:47 Baso # 0.1 K/mm3 (0.0-0.1) 05/10/16 12:47 Seg Neutrophils % 49.2 % (40.0-70.0) 05/10/16 12:47 Seg Neutrophils # 2.8 K/mm3 (1.8-7.7) 05/10/16 12:47 Sodium 134 mmol/L (137-145) L 05/10/16 12:47 Potassium 4.1 mmol/L (3.6-5.0) 05/10/16 12:47 Chloride 97.0 mmol/L (98-107) L 05/10/16 12:47 Carbon Dioxide 23 mmol/L (22-30) 05/10/16 12:47 Anion Gap 18 mmol/L 05/10/16 12:47 BUN 10 mg/dL (9-20) 05/10/16 12:47 Creatinine 1.0 mg/dL (0.8-1.5) 05/10/16 12:47 Estimated GFR > 60 ml/min 05/10/16 12:47 BUN/Creatinine Ratio 10.00 % 05/10/16 12:47 Glucose 95 mg/dL (75-100) 05/10/16 12:47 Calcium 9.3 mg/dL (8.4-10.2) 05/10/16 12:47 Total Creatine Kinase 61 units/L (55-170) 05/11/16 19:12 CK-MB (CK-2) 1.3 ng/mL (0.0-4.0) 05/11/16 19:12 CK-MB (CK-2) Rel Index 2.1 (0-4) 05/11/16 19:12 Troponin T < 0.010 ng/mL (0.00-0.029) 05/11/16 19:12 NT-Pro-B Natriuret Pep 301.9 pg/mL (0-900) 05/10/16 23:42
[2016-05-14] MEDS: MORPHINE IV PRN ×3 (04:06→22:09)
[2016-05-14] MEDS: HEPARIN SUB-Q SCH ×3 (06:50→22:08)
[2016-05-14] MEDS: PEPCID PO SCH ×2 (09:28→22:06)
[2016-05-14] MEDS: ASPIRIN PO SCH (09:28)
--- NOTE | 2016-05-14 13:03 | Progress Note ---
<CARLI BERNABE - Last Filed: 05/14/16 12:59> Assessment and Plan Chest pain, atypical No evidence of ischemia on MPI 11/2015 done at [facility]. Hx of CAD s/p CABG 4 yrs ago Essential hypertension Obesity Tobacco abuse ECG is normal sinus rhythm with nonspecific anterior T-wave abnormalities. Recommendations: Medical therapy for his coronary artery disease. Advised smoking cessation. Subjective Date of service: 05/14/16 Principal diagnosis: Chest pains Interval history: Patient denies chest pain and shortness of breath. [facility] records reviewed. Objective Vital Signs Temp Pulse Pulse Resp BP Pulse Ox 05/14/16 11:15 97.4 F L 66 20 134/76 95 05/14/16 09:18 98.8 F 74 18 134/81 97 05/14/16 04:00 99.5 F 80 20 139/93 98 05/14/16 01:00 76 05/14/16 00:00 98.5 F 66 18 149/93 99 05/13/16 22:00 18 05/13/16 20:08 99.2 F 76 18 156/90 94 05/13/16 17:00 96 H 05/13/16 16:40 98.1 F 90 20 151/100 98 - Physical Examination General: No Apparent Distress HEENT: Positive: PERRL Neck: Positive: trachea midline Cardiac: Positive: Reg Rate and Rhythm Lungs: Positive: Decreased Breath Sounds Neuro: Positive: Grossly Intact Abdomen: Negative: Distended Musculoskeletal: Normal Range of Motion Extremities: Present: normal. Absent: edema - Imaging and Cardiology EKG: image reviewed (T-wave inversions in leads V2 through V6) <BONNIE NUÑEZ - Last Filed: 05/14/16 13:39> Assessment and Plan - Patient Problems (1) Chest pain Current Visit: Yes Status: Acute Qualifiers: Chest pain type: unspecified Qualified Code(s): R07.9 - Chest pain, unspecified Plan to address problem: Patient is status post coronary bypass surgery 4 years ago, presents now with atypical chest pain. Echocardiogram on this presentation demonstrates well preserved left ventricular systolic function, ejection fraction 50-55%. We reviewed full results of a recent thallium stress test done at the [facility]. November 2015, the Pers[facility] thallium stress test was negative. His ECG at [facility] is reported to have anterior T wave inversions, similar to the current one, which appears to be his baseline. No further cardiac workup is indicated, stable for cardiac discharge. Objective Vital Signs Temp Pulse Pulse Resp BP Pulse Ox 05/14/16 11:15 97.4 F L 66 20 134/76 95 05/14/16 09:18 98.8 F 74 18 134/81 97 05/14/16 04:00 99.5 F 80 20 139/93 98 05/14/16 01:00 76 05/14/16 00:00 98.5 F 66 18 149/93 99 05/13/16 22:00 18 05/13/16 20:08 99.2 F 76 18 156/90 94 05/13/16 17:00 96 H 05/13/16 16:40 98.1 F 90 20 151/100 98
--- NOTE | 2016-05-14 18:06 | Progress Note ---
Assessment and Plan Assessment and plan: 1. Chest pain - ACS excluded based on EKG, serial cardiac enzymes, normal echocardiogram and recent negative MPI (12/11 at [facility]); atypical chest pain likely secondary to GERD; started on Pepcid and symptoms improved 2. CAD status post CABG - aspirin and statin; add beta fernando and NHI inhibitor 3. Hypertension - start low doses Coreg and Lisinopril (given CAD); monitor BP and adjust as needed 4. Hyperlipidemia - start statin 5. Tobacco abuse - counseled regarding importance of quitting smoking 6. Obesity - counseled regarding importance of losing weight and lifestyle changes 7. DVT prophylaxis - heparin subcutaneous 8. Disposition - no further cardiac workup; plan to discharge in a.m. ( transportation not available this evening) History Interval history: chest pain resolved, no other complaints Hospitalist Physical - Constitutional Vitals: Temp Pulse Resp BP Pulse Ox 97.4 F L 66 20 134/76 95 05/14/16 11:15 05/14/16 11:15 05/14/16 11:15 05/14/16 11:15 05/14/16 11:15 General appearance: Present: no acute distress, obese - EENT Eyes: Present: PERRL, EOM intact. Absent: scleral icterus, conjunctival injection - Neck Neck: Present: supple, normal ROM. Absent: masses or JVD - Respiratory Respiratory effort: normal Respiratory: bilateral: CTA, negative: rales, rhonchi, wheezing - Cardiovascular Rhythm: regular Heart Sounds: Present: S1 & S2. Absent: systolic murmur - Extremities Extremities: no ischemia - Abdominal General gastrointestinal: soft, non-tender, non-distended, normal bowel sounds - Integumentary Integumentary: Present: warm, dry. Absent: jaundice, rash - Neurologic Neurologic: CNII-XII intact, no focal deficits Results - Labs CBC & Chem 7: 05/10/16 12:47 05/10/16 12:47 Labs: Laboratory Last Values WBC 5.7 K/mm3 (4.5-11.0) 05/10/16 12:47 RBC 5.76 M/mm3 (3.65-5.03) H 05/10/16 12:47 Hgb 14.7 gm/dl (11.8-15.2) 05/10/16 12:47 Hct 46.3 % (35.5-45.6) H 05/10/16 12:47 MCV 80 fl (84-94) L 05/10/16 12:47 MCH 26 pg (28-32) L 05/10/16 12:47 MCHC 32 % (32-34) 05/10/16 12:47 RDW 16.2 % (13.2-15.2) H 05/10/16 12:47 Plt Count 208 K/mm3 (140-440) 05/10/16 12:47 Lymph % (Auto) 32.7 % (13.4-35.0) 05/10/16 12:47 Clare % (Auto) Director Targeted Marketing 05/10/16 12:47 Eos % (Auto) 2.2 % (0.0-4.3) 05/10/16 12:47 Baso % (Auto) 0.9 % (0.0-1.8) 05/10/16 12:47 Lymph # 1.9 K/mm3 (1.2-5.4) 05/10/16 12:47 Clare # 0.9 K/mm3 (0.0-0.8) H 05/10/16 12:47 Eos # 0.1 K/mm3 (0.0-0.4) 05/10/16 12:47 Baso # 0.1 K/mm3 (0.0-0.1) 05/10/16 12:47 Seg Neutrophils % 49.2 % (40.0-70.0) 05/10/16 12:47 Seg Neutrophils # 2.8 K/mm3 (1.8-7.7) 05/10/16 12:47 Sodium 134 mmol/L (137-145) L 05/10/16 12:47 Potassium 4.1 mmol/L (3.6-5.0) 05/10/16 12:47 Chloride 97.0 mmol/L (98-107) L 05/10/16 12:47 Carbon Dioxide 23 mmol/L (22-30) 05/10/16 12:47 Anion Gap 18 mmol/L 05/10/16 12:47 BUN 10 mg/dL (9-20) 05/10/16 12:47 Creatinine 1.0 mg/dL (0.8-1.5) 05/10/16 12:47 Estimated GFR > 60 ml/min 05/10/16 12:47 BUN/Creatinine Ratio 10.00 % 05/10/16 12:47 Glucose 95 mg/dL (75-100) 05/10/16 12:47 Calcium 9.3 mg/dL (8.4-10.2) 05/10/16 12:47 Total Creatine Kinase 61 units/L (55-170) 05/11/16 19:12 CK-MB (CK-2) 1.3 ng/mL (0.0-4.0) 05/11/16 19:12 CK-MB (CK-2) Rel Index 2.1 (0-4) 05/11/16 19:12 Troponin T < 0.010 ng/mL (0.00-0.029) 05/11/16 19:12 NT-Pro-B Natriuret Pep 301.9 pg/mL (0-900) 05/10/16 23:42 - Imaging and Cardiology Imaging and Cardiology: Echocardiogram - normal EF
[2016-05-14] MEDS: COREG PO SCH (22:07)
[2016-05-15] MEDS: MORPHINE IV PRN ×2 (05:17→10:49)
[2016-05-15] MEDS: HEPARIN SUB-Q SCH ×2 (05:18→14:03)
[2016-05-15] MEDS ORDERED: ZESTRIL PO SCH (10:00)
[2016-05-15] MEDS: PEPCID PO SCH (10:49)
[2016-05-15] MEDS: COREG PO SCH (10:50)
[2016-05-15] MEDS: ASPIRIN PO SCH (10:50)
[2016-05-15 11:47] VITALS: BP 153/64
--- NOTE | 2016-05-15 12:06 | Progress Note ---
Assessment and Plan Chest pain, atypical No evidence of ischemia on MPI 11/2015 done at [facility]. Hx of CAD s/p CABG 4 yrs ago Essential hypertension Obesity Tobacco abuse ECG is normal sinus rhythm with nonspecific anterior T-wave abnormalities. His ECG at [facility] is reported to have anterior T wave inversions, similar to the current one, which appears to be his baseline. Recommendations: Medical therapy for his coronary artery disease. Advised smoking cessation. No further cardiac workup is indicated, stable for cardiac discharge. Subjective Date of service: 05/15/16 Principal diagnosis: Chest pains Interval history: Patient denies chest pain and shortness of breath. Objective Vital Signs Temp Pulse Pulse Resp BP BP Pulse Ox 05/15/16 11:46 98.1 F 74 18 153/64 96 05/15/16 08:27 98.1 F 95 H 18 121/85 96 05/15/16 08:19 80 05/15/16 05:01 98.4 F 89 18 141/77 99 05/15/16 01:00 74 05/15/16 00:52 98.3 F 20 144/82 98 05/14/16 22:07 84 153/74 05/14/16 22:00 18 05/14/16 20:35 98.1 F 84 18 153/74 100 05/14/16 17:50 97.6 F 82 20 138/87 - Physical Examination General: No Apparent Distress HEENT: Positive: PERRL Neck: Positive: trachea midline Cardiac: Positive: Reg Rate and Rhythm Lungs: Positive: Decreased Breath Sounds Neuro: Positive: Grossly Intact Extremities: Absent: edema - Imaging and Cardiology EKG: image reviewed (T-wave inversions in leads V2 through V6)
--- NOTE | 2016-05-15 12:29 | Discharge Summary ---
Providers - Providers Date of Admission: 05/11/16 04:24 Date of discharge: 05/15/16 Attending physician: LAITH VALLEJO 05/11/16 Consult to Cardiac Rehabilitation [CONS] Routine Reason For Exam: Phase 1 Consult to Cardiac Rehabilitation [CONS] Routine Reason For Exam: Phase I Primary care physician: [facility] Hospitalization Reason for admission: chest pain Condition: Stable Pertinent studies: Chest x-ray Echocardiogram Hospital course: Patient is a 51 years old -[place] male with coronary artery disease, hypertension, hyperlipidemia presents to the hospital complaining of chest pain. ACS was excluded; most likely his symptoms were secondary to GERD which she was started on famotidine; discharged in stable condition with PCP follow-up. Discharge diagnosis: 1. Chest pain - ACS excluded based on EKG, serial cardiac enzymes, normal echocardiogram and recent negative MPI (12/11 at [facility]); atypical chest pain likely secondary to GERD; started on Pepcid and symptoms improved 2. CAD status post CABG - aspirin and statin; beta fernando and NHI inhibitor added 3. Hypertension - started on low doses Coreg and Lisinopril (given CAD) 4. Hyperlipidemia - started on statin 5. Tobacco abuse - counseled regarding importance of quitting smoking 6. Obesity - counseled regarding importance of losing weight and lifestyle changes Disposition: DISCHARGED TO HOME OR SELFCARE Time spent for discharge: 35 minutes Core Measure Documentation - Palliative Care Palliative Care/ Comfort Measures: Not Applicable - Core Measures Any of the following diagnoses?: none Exam - Physical Exam Narrative exam: Patient seen and examined: - Constitutional Vitals: Temp Pulse Resp BP Pulse Ox 98.1 F 74 18 153/64 96 05/15/16 12:06 05/15/16 12:06 05/15/16 12:06 05/15/16 12:06 05/15/16 12:06 General appearance: Present: no acute distress - EENT Eyes: Present: PERRL, EOM intact. Absent: scleral icterus, conjunctival injection - Neck Neck: Present: supple, normal ROM. Absent: masses or JVD - Respiratory Respiratory effort: normal Respiratory: bilateral: CTA, negative: rales, rhonchi, wheezing - Cardiovascular Rhythm: regular Heart Sounds: Present: S1 & S2. Absent: systolic murmur - Extremities Extremities: no ischemia - Abdominal General gastrointestinal: Present: soft, non-tender, non-distended, normal bowel sounds - Psychiatric Psychiatric: cooperative - Neurologic Neurologic: CNII-XII intact, no focal deficits Plan Activity: advance as tolerated Diet: low cholesterol, low salt Follow up with: PRIMARY CARE, [Primary Care Provider] - 3-5 Days Prescriptions: AtorvaSTATin [Lipitor] 40 mg PO QHS #30 tablet Aspirin [Aspirin TAB] 325 mg PO QDAY #30 tablet Carvedilol [Coreg] 3.125 mg PO BID #60 tablet Famotidine [Pepcid] 20 mg PO BID #60 tablet Lisinopril [Zestril TAB] 2.5 mg PO QDAY #30 tablet
== END 2016-05-15 17:26 | disposition home or self-care (01) | DRG 392 ==
LOC: ED 10:36 → 4A 05-11 04:24
PROVIDERS: ADMIT Internal Medicine; ATTEND Internal Medicine
DX: K21.9 Gastro-esophageal reflux disease without esophagitis (principal); E78.5 Hyperlipidemia, unspecified; I10 Essential (primary) hypertension; E66.9 Obesity, unspecified; M25.512 Pain in left shoulder; M25.511 Pain in right shoulder; F17.210 Nicotine dependence, cigarettes, uncomplicated; I25.110 Atherosclerotic heart disease of native coronary artery with unstable angina pectoris; J42 Unspecified chronic bronchitis; Z71.6 Tobacco abuse counseling; Z71.3 Dietary counseling and surveillance; Z68.34 Body mass index [BMI] 34.0-34.9, adult; Z95.1 Presence of aortocoronary bypass graft; Z98.890 Other specified postprocedural states; Z82.49 Family history of ischemic heart disease and other diseases of the circulatory system
CPT/HCPCS: 36415; 71020; 80048; 82550; 82553; 83880; 84484; 85025; 93005; 93010; 93306; 99406; A9270-GY; J1644; J2270; J2785